=== PATIENT | male | born 1975 | race Caucasian/White ===

== ENCOUNTER 2024-10-27 09:54 | Outpatient (CLI) | payer OTHER, SELFPAY ==
[2024-10-27 11:02] LABS: EXAGEN MAILED SPECIMEN
== END 2024-10-27 23:59 | disposition home or self-care (01) ==
PROVIDERS: Referring Provider Internal Medicine Rheumatology; Visit Provider Internal Medicine Rheumatology
DX: Z00.00 Encounter for general adult medical examination without abnormal findings (principal)
CPT/HCPCS: 36415